=== PATIENT | female | born 1950 | race African-American/Black ===

== ENCOUNTER → 2021-06-25 | Day surgery (SDC) | payer MEDICARE ==
[~2021-06-25] VITALS: Ht 165.1 cm; Wt 70.8 kg
[~2021-06-25] MED LIST: ACETAMINOPHEN 325MG TABLET PO PRN; ASPI-1497 MT; CEFAZOLIN SODIUM 1000MG/VIAL ONE; DIPHENHYDRAMINE 50MG/ML VIAL ONE; EPHEDRINE SULFATE 50MG/ML VIAL ONE; FENTANYL CITRATE/PF 50MCG/ML 2ML VIAL ONE; IBUP-2030 MT; LACTATED RINGERS 1,000 ML IV SCH; LEVO25TA7 MT; LIDOCAINE HCL/PF 1% 10 MG/ML 5ML VIAL ONE; LOSA50TA41 MT; METHYLENE BLUE 50 MG/10 ML AMP IV ONE; MIDAZOLAM HCL 2 MG/2 ML VIAL ONE; OMEP20CA14 MT; ONDANSETRON HCL 4MG/2ML INJ IV SCH; ONDANSETRON HCL 4MG/2ML INJ ONE; PROPOFOL 200MG/20ML VIAL IV ONE; VASOPRESSIN 20 UNIT/ML 1ML ONE
[2021-06-25 07:29] LABS: CLARITY URINE CLEAR (CLEAR); COLOR URINE YELLOW (YELLOW); KETONES URINE NEGATIVE (NEGATIVE); LEUKOCYTE ESTERASE URINE NEGATIVE (NEGATIVE); NITRITE URINE NEGATIVE (NEGATIVE); OCCULT BLOOD URINE NEGATIVE (NEGATIVE); PH URINE 7.5 (4.5-8.0); PROTEIN URINE NEGATIVE (NEGATIVE); SPECIFIC GRAVITY URINE 1.007 (1.005-1.030); UROBILINOGEN URINE 0.2 E.U./dL (0.2-1.0)
[2021-06-25 07:30] LABS: UCG SCREEN NEGATIVE
[2021-06-25 07:35] LABS: BASOPHILS % 1.2 % (0.0-2.0); CHLORIDE 110 mEq/L (98-107); EOSINOPHILS % 2.1 % (0.0-5.0); HEMATOCRIT. 38.5 % (36.0-48.0); HEMOGLOBIN. 13.3 g/dL (12.0-16.0); LYMPHOCYTES % 31.7 % (20.0-50.0); MEAN CORPUSCULAR HEMOGLOBIN 28.5 pg (28.0-32.0); MEAN CORPUSCULAR VOLUME 82.3 fL (81.0-99.0); MEAN PLATELET VOLUME 7.6 fl (7.4-10.4); MONOCYTES % 5.3 % (2.0-8.0); NEUTROPHILS % 59.7 % (40.0-76.0); PLATELET 288 x1000/uL (130-400); RED BLOOD CELL COUNT 4.67 mill/uL (4.2-5.4); RED CELL DISTRIBUTION WIDTH 14.8 % (11.6-14.6)
[2021-06-25 07:49] LABS: PARTIAL THROMBOPLASTIN TIME 28.4 sec (23.4-31.0); PROTHROMBIN TIME 10.3 sec (9.6-11.0)
[2021-06-25] MEDS: HYDROMORPHONE HCL/PF 2MG/ML CPJ IV PRN ×4 (10:25→11:09)
[2021-06-25 11:09] VITALS: BP 123/79
== END | disposition home or self-care (01) ==
LOC: OR 06:02
PROVIDERS: ATTEND Obstetrics & Gynecology Obstetrics
DX: N84.0 Polyp of corpus uteri (principal); D25.0 Submucous leiomyoma of uterus; I10 Essential (primary) hypertension; E03.9 Hypothyroidism, unspecified; K21.9 Gastro-esophageal reflux disease without esophagitis; Z79.82 Long term (current) use of aspirin; Z79.899 Other long term (current) drug therapy; Z79.01 Long term (current) use of anticoagulants; Z98.890 Other specified postprocedural states; Z20.822 Contact with and (suspected) exposure to COVID-19
CPT/HCPCS: 36415; 58558; 80048; 81003; 81025; 85025; 85610; 85730; 87426; 88305; J0690; J1170; J1200; J2250; J2405; J2704; J3010; J3490; Q9968